=== PATIENT | male | born 1985 | race Caucasian/White ===

== ENCOUNTER 2018-05-28 14:33 | Emergency (ER) | payer MEDICAID, OTHER ==
[2018-05-28] MEDS ORDERED: Sodium Chloride 0.9% 1000 ML 1,000 ML IV STA (15:56)
--- NOTE | 2018-05-28 15:56 | ERPHSYRPT ---
- History of Present Illness Time Seen by Provider: 05/28/18 15:51 Source: patient Exam Limitations: intoxication Patient Subjective Stated Complaint: pt here for yellow eyes and not feeling well for a couple weeks now, was seen at [place] 05/22 for this problem and hes liver enzymes were elevated, and he has not followed up Triage Nursing Assessment: pt alert, resp easy, skin w/d/yellow, abd soft, no edema Physician History: The patient is a 32-year-old male who admits to methamphetamine usage this morning comes in complaining of yellow skin, yellow eyes, and elevated liver enzymes that were discovered when he was seen at [facility] on 05/17/18. He states that he has no doctor because he got out of custodial 5 months ago. He was advised at [facility] ER to follow-up with a local doctor for the elevated liver enzymes and jaundice. This I read from the note from [facility] dated 05/17/18. He states he wakes up every morning in pain everywhere. Timing/Duration: week(s) (2), gradual onset Severity: moderate Associated Symptoms: nausea, other (jaundice) Allergies/Adverse Reactions: No Known Drug Allergies Allergy (Unverified 05/28/18 14:53) Home Medications: No Reportable Medications [No Reported Medications] 05/28/18 [History] Hx Tetanus, Diphtheria Vaccination/Date Given: No Hx Influenza Vaccination/Date Given: No Hx Pneumococcal Vaccination/Date Given: No Immunizations Up to Date: Yes - Review of Systems Constitutional: No Fever, No Chills Eyes: Other (yellow eyes) Ears, Nose, & Throat: No Symptoms Respiratory: No Cough, No Dyspnea Cardiac: No Chest Pain, No Edema, No Syncope Abdominal/Gastrointestinal: Nausea Genitourinary Symptoms: No Dysuria Musculoskeletal: No Back Pain, No Neck Pain Skin: Other (jaundice) Neurological: No Dizziness, No Focal Weakness, No Sensory Changes Psychological: Other (drug abuse) Endocrine: No Symptoms Hematologic/Lymphatic: No Symptoms Immunological/Allergic: No Symptoms All Other Systems: Reviewed and Negative - Past Medical History Pertinent Past Medical History: No - Past Surgical History Past Surgical History: No - Social History Smoking Status: Current every day smoker Exposure to second hand smoke: Yes Drug Use: methamphetamines Patient Lives Alone: No - Nursing Vital Signs Nursing Vital Signs: Initial Vital Signs Temperature 97.8 F 05/28/18 14:41 Pulse Rate 70 05/28/18 14:41 Respiratory Rate 16 05/28/18 14:41 Blood Pressure 135/74 05/28/18 14:41 O2 Sat by Pulse Oximetry 97 05/28/18 14:41 Pain Scale Pain Intensity 4 - Physical Exam General Appearance: lethargy, thin Eye Exam: PERRL/EOMI, scleral icterus Ears, Nose, Throat Exam: normal ENT inspection, TMs normal, pharynx normal, moist mucous membranes Neck Exam: normal inspection, non-tender, supple, full range of motion Respiratory Exam: normal breath sounds Cardiovascular Exam: regular rate/rhythm, normal heart sounds, normal peripheral pulses Gastrointestinal/Abdomen Exam: soft, normal bowel sounds, No tenderness, No mass Rectal Exam: not done Back Exam: normal inspection, normal range of motion, No CVA tenderness, No vertebral tenderness Extremity Exam: normal inspection, normal range of motion, pelvis stable Neurologic Exam: alert, oriented x 3, cooperative, intoxicated appearance Skin Exam: jaundice Lymphatic Exam: No adenopathy SpO2 Interpretation: normal SpO2: 97 Oxygen Delivery: Room Air - CT Exams Abdomen/Pelvis CT Interpretation: Tele-radiologist Report (per Dr Vickers), Other (small bowel enteritis) Ordered Tests: Active Orders 24 hr Category Date Time Status Clean Catch Urine Specimen STAT Care 05/28/18 15:56 Active EKG-ER Only STAT Care 05/28/18 15:56 Active IV Insertion STAT Care 05/28/18 15:56 Active ABDOMEN AND PELVIS W/0 CONTRAS [CT] Stat Exams 05/28/18 15:57 Taken AMYLASE Stat Lab 05/28/18 15:30 Completed BLOOD CULTURE Stat Lab 05/28/18 16:00 Ordered CBC W DIFF Stat Lab 05/28/18 15:30 Completed CMP Stat Lab 05/28/18 15:30 Completed LIPASE Stat Lab 05/28/18 15:30 Completed Lactic Acid Stat Lab 05/28/18 16:08 Completed PT INR [PROTIME WITH INR] Stat Lab 05/28/18 19:55 Ordered TROPONIN Q3H Lab 05/28/18 16:00 Completed TROPONIN Q3H Lab 05/29/18 01:00 Ordered TROPONIN Q3H Lab 05/29/18 04:00 Ordered UA W/RFX UR CULTURE Stat Lab 05/28/18 16:04 Completed Urine Triage Profile Stat Lab 05/28/18 16:04 Completed Medication Summary Discontinued Medications Generic Name Dose Route Start Last Admin Trade Name Kimber PRN Reason Stop Dose Admin Sodium Chloride 1,000 mls @ 999 mls/hr 05/28/18 15:56 05/28/18 17:26 Sodium Chloride 0.9% 1000 Ml IV 05/28/18 16:56 Infused .Q1H1M STA Infusion Sodium Chloride Confirm 05/28/18 16:06 Sodium Chloride 0.9% 1000 Ml Administered 05/28/18 16:07 Dose 1,000 mls @ ud .ROUTE .STK-MED ONE Lab/Rad Data: Laboratory Result Diagrams 05/28/18 15:30 05/28/18 15:30 Laboratory Results 05/28/18 05/28/18 05/28/18 Range/Units 16:08 16:04 16:04 WBC (4.0-10.5) K/mm3 RBC (4.1-5.6) M/mm3 Hgb (12.5-18.0) gm/dl Hct (42-50) % MCV (78-100) fl MCH (26-32) pg MCHC (32-36) g/dl RDW (11.5-14.0) % Plt Count (150-450) K/mm3 MPV (6-9.5) fl Gran % (36.0-66.0) % Eos # (Auto) (0-0.5) Absolute Lymphs (auto) (1.0-4.6) Absolute Monos (auto) (0.0-1.3) Lymphocytes % (24.0-44.0) % Monocytes % (0.0-12.0) % Eosinophils % (0.00-5.0) % Basophils % (0.0-0.4) % Absolute Granulocytes (1.4-6.9) Basophils # (0-0.4) Sodium (137-145) mmol/L Potassium (3.5-5.1) mmol/L Chloride (98-107) mmol/L Carbon Dioxide (22-30) mmol/L Anion Gap (5-15) MEQ/L BUN (9-20) mg/dL Creatinine (0.66-1.25) mg/dL Estimated GFR ML/MIN Glucose (74-106) mg/dL Lactic Acid 1.0 (0.4-2.0) Calcium (8.4-10.2) mg/dL Total Bilirubin (0.2-1.3) mg/dL AST (17-59) U/L ALT (0-50) U/L Alkaline Phosphatase (38-126) U/L Troponin I (0.000-0.034) ng/mL Serum Total Protein (6.3-8.2) g/dL Albumin (3.5-5.0) g/dL Amylase (30-110) U/L Lipase (23-300) U/L Urine Color TAMIKO (YELLOW) Urine Appearance CLEAR (CLEAR) Urine pH 6.0 (5-6) Ur Specific [place] 1.019 (1.005-1.025) Urine Protein NEGATIVE (Negative) Urine Ketones NEGATIVE (NEGATIVE) Urine Blood NEGATIVE (0-5) Kameron/ul Urine Nitrite NEGATIVE (NEGATIVE) Urine Bilirubin MODERATE (NEGATIVE) Urine Urobilinogen 4 (0-1) mg/dL Ur Leukocyte Esterase NEGATIVE (NEGATIVE) Urine WBC (Auto) 3-5 (0-5) /HPF U Epithel Cells (Auto) NONE (FEW) /HPF Urine Bacteria (Auto) Not Reportable Unidentified Crystals 2-5 (NEGATIVE) /HPF Other Casts (Auto) NEGATIVE (NEGATIVE) /LPF Urine Mucus (Auto) SLIGHT (NEGATIVE) /HPF Urine Culture Reflexed NO (NO) Urine Glucose NEGATIVE (NEGATIVE) mg/dL Urine Opiates Level NEGATIVE (NEGATIVE) Ur Methadone NEGATIVE (NEGATIVE) Urine Barbiturates NEGATIVE (NEGATIVE) Ur Phencyclidine (PCP) NEGATIVE (NEGATIVE) Urine Amphetamine POSITIVE (NEGATIVE) U Benzodiazepine Level NEGATIVE (NEGATIVE) Urine Cocaine NEGATIVE (NEGATIVE) Urine Marijuana (THC) NEGATIVE (NEGATIVE) 05/28/18 05/28/18 05/28/18 Range/Units 16:00 15:30 15:30 WBC 5.6 (4.0-10.5) K/mm3 RBC 3.97 L (4.1-5.6) M/mm3 Hgb 12.4 L (12.5-18.0) gm/dl Hct 36.6 L (42-50) % MCV 92.2 (78-100) fl MCH 31.2 (26-32) pg MCHC 33.9 (32-36) g/dl RDW 14.4 H (11.5-14.0) % Plt Count 297 (150-450) K/mm3 MPV 10.9 H (6-9.5) fl Gran % 65.7 (36.0-66.0) % Eos # (Auto) 0.23 (0-0.5) Absolute Lymphs (auto) 0.94 L (1.0-4.6) Absolute Monos (auto) 0.73 (0.0-1.3) Lymphocytes % 16.7 L (24.0-44.0) % Monocytes % 13.0 H (0.0-12.0) % Eosinophils % 4.1 (0.00-5.0) % Basophils % 0.5 (0.0-0.4) % Absolute Granulocytes 3.70 (1.4-6.9) Basophils # 0.03 (0-0.4) Sodium 136 L (137-145) mmol/L Potassium 4.0 (3.5-5.1) mmol/L Chloride 100 (98-107) mmol/L Carbon Dioxide 26 (22-30) mmol/L Anion Gap 14.0 (5-15) MEQ/L BUN 13 (9-20) mg/dL Creatinine 0.75 (0.66-1.25) mg/dL Estimated GFR > 60.0 ML/MIN Glucose 113 H (74-106) mg/dL Lactic Acid (0.4-2.0) Calcium 9.0 (8.4-10.2) mg/dL Total Bilirubin 12.20 H (0.2-1.3) mg/dL AST 1094 H (17-59) U/L ALT 1493 H (0-50) U/L Alkaline Phosphatase 324 H (38-126) U/L Troponin I < 0.012 (0.000-0.034) ng/mL Serum Total Protein 7.0 (6.3-8.2) g/dL Albumin 3.5 (3.5-5.0) g/dL Amylase 86 (30-110) U/L Lipase 89 (23-300) U/L Urine Color (YELLOW) Urine Appearance (CLEAR) Urine pH (5-6) Ur Specific [place] (1.005-1.025) Urine Protein (Negative) Urine Ketones (NEGATIVE) Urine Blood (0-5) Kameron/ul Urine Nitrite (NEGATIVE) Urine Bilirubin (NEGATIVE) Urine Urobilinogen (0-1) mg/dL Ur Leukocyte Esterase (NEGATIVE) Urine WBC (Auto) (0-5) /HPF U Epithel Cells (Auto) (FEW) /HPF Urine Bacteria (Auto) Unidentified Crystals (NEGATIVE) /HPF Other Casts (Auto) (NEGATIVE) /LPF Urine Mucus (Auto) (NEGATIVE) /HPF Urine Culture Reflexed (NO) Urine Glucose (NEGATIVE) mg/dL Urine Opiates Level (NEGATIVE) Ur Methadone (NEGATIVE) Urine Barbiturates (NEGATIVE) Ur Phencyclidine (PCP) (NEGATIVE) Urine Amphetamine (NEGATIVE) U Benzodiazepine Level (NEGATIVE) Urine Cocaine (NEGATIVE) Urine Marijuana (THC) (NEGATIVE) - Progress Progress: unchanged Progress Note: 05/28/18 The findings from the abdomen pelvis scan performed at [facility] on 05/17/18 show "mild nonspecific periportal edema with a differential diagnosis that includes hepatitis, hepatic congestion, cholangitis , or volume overload." Discussed pt with Dr Ambrosio, bellstand attendant, at [facility]. 05/28/18 20:[address] Hobson, hospitalist at [facility]. Accepts pt to PCU. Counseled pt/family regarding: lab results, diagnosis - Departure Time of Disposition: 20:18 Departure Disposition: Transfer (Transfer to [facility] per Maria Elena Ambrosio and Joce) Clinical Impression: Acute hepatitis, Methamphetamine abuse Condition: Stable Critical Care Time: No Referrals: DOCTOR,NO FAMILY [Primary Care Provider] -
[2018-05-28] MEDS ORDERED: Sodium Chloride 0.9% 1000 ML 1,000 ML ONE (16:06)
[2018-05-28 16:08] LABS: ALBUMIN 3.5 g/dL (3.5-5.0); ALKALINE PHOSPHATASE 324 U/L (38-126); AMYLASE 86 U/L (30-110); BLOOD UREA NITROGEN 13 mg/dL (9-20); CHLORIDE 100 mmol/L (98-107); Carbon Dioxide 26 mmol/L (22-30); Creatinine 1 0.75 mg/dL (0.66-1.25); Glucose 113 mg/dL (74-106); LIPASE 89 U/L (23-300); SODIUM 136 mmol/L (137-145)
[2018-05-28 16:17] LABS: BASOPHIL % 0.5 % (0.0-0.4); Basophil (Absolute #) 0.03 (0-0.4); Eosinophil % 4.1 % (0.00-5.0); Eosinophil (Absolute #) 0.23 (0-0.5); Granulocytes % 65.7 % (36.0-66.0); Hematocrit 36.6 % (42-50); Hemoglobin 12.4 gm/dl (12.5-18.0); Lymphocyte (Absolute #) 0.94 (1.0-4.6); Lymphocytes % 16.7 % (24.0-44.0); Mean Cell Volume 92.2 fl (78-100); Mean Corpuscular Hemoglobin 31.2 pg (26-32); Mean Corpuscular Hgb Concent. 33.9 g/dl (32-36); Mean Platelet Volume 10.9 fl (6-9.5); Monocyte (Absolute #) 0.73 (0.0-1.3); Platelet Count 297 K/mm3 (150-450); Red Blood Count 3.97 M/mm3 (4.1-5.6); Red Cell Distribution Width 14.4 % (11.5-14.0); White Blood Count 5.6 K/mm3 (4.0-10.5)
[2018-05-28 16:26] LABS: SGOT/AST 1094 U/L (17-59); SGPT/ALT 1493 U/L (0-50)
[2018-05-28 16:29] LABS: Appearance CLEAR (CLEAR); Bilirubin MODERATE (NEGATIVE); Blood NEGATIVE Ery/ul (0-5); Glucose NEGATIVE (NEGATIVE); Ketones NEGATIVE (NEGATIVE); Leukocyte Esterase NEGATIVE (NEGATIVE); Nitrite NEGATIVE (NEGATIVE); Protein,Urine Dip NEGATIVE (Negative); Specific Gravity 1.019 (1.005-1.025); Urobilinogen 4 mg/dL (0-1)
[2018-05-28 16:30] LABS: Barbiturate,Urine NEGATIVE (NEGATIVE); Benzodiazepine,Urine NEGATIVE (NEGATIVE); Cocaine,Urine NEGATIVE (NEGATIVE); Methadone,Urine NEGATIVE (NEGATIVE); Opiate,Urine NEGATIVE (NEGATIVE); PCP,Urine NEGATIVE (NEGATIVE); THC,Urine NEGATIVE (NEGATIVE)
[2018-05-28 17:16] LABS: Amphetamine,Urine POSITIVE (NEGATIVE)
[2018-05-28 19:27] VITALS: PULSE 80
[2018-05-28 20:04] VITALS: O2SAT 97
[2018-05-28] MEDS ORDERED: Ativan 2 MG/1 ML VIAL IV ONE (20:22)
[2018-05-28 20:25] VITALS: BP 110/86
[2018-05-28] MEDS ORDERED: Ativan 2 MG/1 ML VIAL ONE (20:25)
[2018-05-28 20:39] LABS: INR 1.25 (0.8-3.0)
--- NOTE | 2018-05-28 21:08 | XRAY ---
Indication: Nausea and jaundice 3 days. Multiple contiguous axial images obtained through the abdomen and pelvis without contrast as ordered. Comparison: None. Lung bases demonstrate bibasilar dependent atelectasis. No infiltrate or effusion. Heart is not enlarged. Several images through the abdomen slightly degraded by respiration artifact. Noncontrasted stomach and bowel loops appear nonobstructed. Mild fluid distended small bowel loops with possible mild wall thickening, ileus versus enteritis. Appendix not seen. No free fluid/air. Gallbladder contracted without gallstones or biliary distention. Remaining liver, spleen, adrenal glands, kidneys, ureters, bladder, and aorta appear unremarkable for noncontrast exam. Osseous structures intact. No ventral or inguinal hernias. Impression: 1. Respiration artifact. 2. Mild fluid distended small bowel loops with mild wall thickening, ileus versus enteritis. 3. Remaining CT abdomen/pelvis without contrast exam is negative. Comment: Preliminary interpretation was made by [facility]. No critical discrepancy. CTDI 9.27
[2018-05-31 16:35] LABS: HEPATITIS B VIRUS CORE TOT AB Reactive (Non Reactive); HEPATITIS C VIRUS ANTIBODY Non Reactive (Non Reactive); Hepatitis B Surface Antigen Reac-confirmed (Non Reactive)
== END 2018-05-28 20:47 | disposition left against medical advice (07) ==
LOC: ED 14:33
DX: B17.9 Acute viral hepatitis, unspecified (principal); F15.10 Other stimulant abuse, uncomplicated
CPT/HCPCS: 36000; 36415; 74176; 80053; 80074; 80307; 81001; 82140; 82150; 83605; 83690; 84484; 85025; 85610; 87040; 93005; 96360; 99284; J2060